=== PATIENT | male | born 1960 | race Caucasian/White ===

== ENCOUNTER 2024-12-27 06:13 | Observation (INO) | payer SELFPAY ==
[2024-12-27] VITALS (12 sets, daily range): BP systolic 132–185; BP diastolic 70–96; PULSE 80–110; RESP 10–20; TEMP 36.3–36.7; O2SAT 97–100; BMI 25.0
--- NOTE | ~2024-12-27 | CT_ITS ---
Non-contrast CT scan of the Abdomen and Pelvis Clinical indication: Left UVJ calculus Technique: 2.5 mm axial scans were obtained through the abdomen and pelvis without intravenous or or al contrast. Dose reduction technique was used on this scan by utilizing automated exposure control a nd iterative reconstruction technique. The dose-length product (DLP) was 193.92 mGy-cm. COMPARISON: 12/27/2024 Findings: Images through the lung bases reveal minimal pleural effusions and minimal bibasilar atele ctatic change. There is minimal residual left hydronephrosis. Previously noted small left UVJ stone is no longer pre sent, presumably passed in the interval. Right kidney and right ureter are unremarkable. The liver, spleen, pancreas, gallbladder, and adrenals appear normal. There are atherosclerotic calci fications of the aorta. There is no evidence of bowel obstruction. Images through the pelvis were performed. There is no evidence of ascites or lymphadenopathy. Urinary bladder unremarkable. Prostate gland is enlarged. Impression: Status post interval passage of left UVJ stone. Minimal residual left hydronephrosis. Minimal bilateral pleural effusions. Enlarged prostate gland. Reviewed, dictated and finalized at location . Impression: Status post interval passage of left UVJ stone. Minimal residual left hydroneph rosis. Minimal bilateral pleural effusions. Enlarged prostate gland.
--- NOTE | ~2024-12-27 | CT_ITS ---
Non-contrast CT scan of the Abdomen and Pelvis Clinical indication: Left flank pain Technique: 2.5 mm axial scans were obtained through the abdomen and pelvis without intravenous or or al contrast. Dose reduction technique was used on this scan by utilizing automated exposure control a nd iterative reconstruction technique. The dose-length product (DLP) was 174.98 mGy-cm. Findings: Images through the lung bases reveal no abnormalities. Probable punctate stones the left UVJ region with mild left hydronephrosis and mild left perinephric stranding. No right renal or right ureteral stone. No right hydronephrosis. The liver, spleen, pancreas, gallbladder, and adrenals appear normal. There is no aortic aneurysm. There is no evidence of bowel obstruction. Images through the pelvis were performed. There is no evidence of ascites or lymphadenopathy. Urinary bladder otherwise unremarkable. Prostate gland is enlarged. There is mild degenerative spondylosis o f the lumbar spine. Impression: Probable punctate left UVJ stone with mild left hydroureteronephrosis and left perinephric stranding. Enlarged prostate gland. Reviewed, dictated and finalized at [facility]. Impression: Probable punctate left UVJ stone with mild left hydroureteronephrosis and left perinephric stranding. Enlarged prostate gland.
--- NOTE | 2024-12-27 06:29 | ED.ABDPAIN ---
HPI - Abdominal Pain General Chief Complaint: Urogenital-Male <Mary Alaniz MD - Last Filed: 12/27/24 07:17> Stated Complaint: SOB, hip pain <Mary Alaniz MD - Last Filed: 12/27/24 07:17> Time Seen by Provider: 12/27/24 06:28 <Mary Alaniz MD - Last Filed: 12/27/24 07:17> Source: patient <Mary Alaniz MD - Last Filed: 12/27/24 07:17> Mode of arrival: ambulatory <Mary Alaniz MD - Last Filed: 12/27/24 07:17> Limitations: no limitations <Mary Alaniz MD - Last Filed: 12/27/24 07:17> History of Present Illness HPI narrative: 64 years old white male healthy otherwise came from home with his complaining of severe left flank pain radiating to the left groin area started 5 hours prior to arrival to the emergency room associated with nausea and vomiting. Patient denies aggravating or relieving factors. History of appendectomy <Mary Alaniz MD - Last Filed: 12/27/24 07:17> Related Data Home Medications: Home Medications ?Medication ?Instructions ?Recorded ?Confirmed ?Last Taken ?Type No Home Medications 12/27/24 12/27/24 Unknown History <Mary Alaniz MD - Last Filed: 12/27/24 07:17> Allergies/Adverse Reactions: Allergies Allergy/AdvReac Type Severity Reaction Status Date / Time No Known Allergies Allergy Verified 12/27/24 06:18 <Mary Alaniz MD - Last Filed: 12/27/24 07:17> Review of Systems Review of Systems: All systems reviewed & are unremarkable except as noted in HPI and below <Mary Alaniz MD - Last Filed: 12/27/24 07:17> Exam Narrative: General appearance: Well-developed, well-nourished Skin: Normal color Head: Normocephalic, nontraumatic Eyes: Clear conjunctiva ENT: Oropharynx normal, ears normal, nose normal Neck: Supple, nontender Chest and respiratory: Airway patent, no respiratory distress, no accessory muscle use Heart: Regular rate/rhythm Abdomen: mild left flank tenderness, left lower abdomen tenderness, no guarding or rebound, normal bowel sounds Vascular: Normal peripheral pulses, normal capillary refill. Musculoskeletal: Normal range of motion, nontender back Neurologic: Alert and oriented ?3, ESTHETICIAN/SKIN THERAPIST is normal as tested, no gross motor deficit <Mary Alaniz MD - Last Filed: 12/27/24 07:17> Course Vital Signs Vital signs: Vital Signs Temperature 36.3 C L 12/27/24 06:17 Pulse Rate 110 H 12/27/24 06:17 Respiratory Rate 18 12/27/24 06:17 Blood Pressure 185/93 H 12/27/24 06:17 Pulse Oximetry 100 12/27/24 06:17 Oxygen Delivery Room Air 12/27/24 06:17 Temperature 36.3 C L 12/27/24 06:17 Pulse Rate 93 12/27/24 08:15 Respiratory Rate 20 12/27/24 08:15 Blood Pressure 149/79 H 12/27/24 08:15 Pulse Oximetry 97 12/27/24 08:15 Oxygen Delivery Room Air 12/27/24 06:17 <Mary Alaniz MD - Last Filed: 12/27/24 07:17> Vital Signs Temperature 36.3 C L 12/27/24 06:17 Pulse Rate 110 H 12/27/24 06:17 Respiratory Rate 18 12/27/24 06:17 Blood Pressure 185/93 H 12/27/24 06:17 Pulse Oximetry 100 12/27/24 06:17 Oxygen Delivery Room Air 12/27/24 06:17 Temperature 36.3 C L 12/27/24 06:17 Pulse Rate 93 12/27/24 08:15 Respiratory Rate 20 12/27/24 08:15 Blood Pressure 149/79 H 12/27/24 08:15 Pulse Oximetry 97 12/27/24 08:15 Oxygen Delivery Room Air 12/27/24 06:17 <Demarcus Spangler MD - Last Filed: 12/27/24 08:32> MDM - Abdominal Pain MDM Narrative Medical decision making narrative: patient came to the ED with sudden onset of left flank pain Vital signs showing blood pressure 185/93, heart rate 110 otherwise within normal limit Physical examination showing restless patient, with left flank tenderness Differential diagnosis include kidney stone, urinary tract infection, colitis, or diverticulitis Blood workup today includes CBC, CMP, lipase showed WBC of 16.7 otherwise insignificant abnormalities , potassium 3.4, creatinine 1.69 Urinalysis showed no evidence of infection CT abdomen and pelvis without contrast showed punctate stone left UVJ junction Elevated blood pressure because patient was in pain on arrival to the ED Patient need to be hospitalized for IV fluid to manage renal insufficiency and kidney stone Patient signed out to the oncoming physician at shift change <Mary Alaniz MD - Last Filed: 12/27/24 07:17> patient came to the ED with sudden onset of left flank pain Vital signs showing blood pressure 185/93, heart rate 110 otherwise within normal limit Physical examination showing restless patient, with left flank tenderness Differential diagnosis include kidney stone, urinary tract infection, colitis, or diverticulitis Blood workup today includes CBC, CMP, lipase showed WBC of 16.7 otherwise insignificant abnormalities , potassium 3.4, creatinine 1.69 Urinalysis showed no evidence of infection CT abdomen and pelvis without contrast showed punctate stone left UVJ junction Elevated blood pressure because patient was in pain on arrival to the ED Patient need to be hospitalized for IV fluid to manage renal insufficiency and kidney stone Patient signed out to the oncoming physician at shift change I have taken over the patient at shift change and pending labs showed an elevated creatinine with no comparison in the chart and we have added IV fluids; also the patient has a white count of 16 thousand with perinephric stranding and we will add Rocephin; we will go ahead and get this patient discussed with urology and transfer for higher level medical care. Discussion with the urologist at [facility] was done and they have suggested admit to our facility for IV fluids and IV antibiotics. He can see the patient as an outpatient for the kidney stone and that should pass on its own due to the small size. If the patient deteriorates he should be transfer for urological evaluation. Repeat CT scan in the morning. <Demarcus Spangler MD - Last Filed: 12/27/24 08:32> Differential Diagnosis Differential diagnosis: Likely other ( as above) <Mary Alaniz MD - Last Filed: 12/27/24 07:17> Medical Records Attestation: I reviewed the patient's medical records. <Mary Alaniz MD - Last Filed: 12/27/24 07:17> Lab Data Attestation: I reviewed the patient's lab results. <Mary Alaniz MD - Last Filed: 12/27/24 07:17> Result diagrams: 12/27/24 06:49 12/27/24 06:49 <Mary Alaniz MD - Last Filed: 12/27/24 07:17> Labs: Lab Results 12/27/24 12/27/24 Range/Units 06:29 06:49 WBC 16.7 H (4.8-10.8) K/mm3 RBC 4.40 L (4.70-6.10) M/mm3 Hgb 13.3 L (14.0-18.0) g/dL Hct 39.5 L (40.0-54.0) % MCV 89.8 (78.0-102.0) fL MCH 30.2 (27.0-31.0) pg MCHC 33.7 (32-36) g/dL RDW 11.9 (11.6-14.4) % Plt Count 604 H (150-420) K/mm3 MPV 9.7 (8.7-11.0) fl Immature Gran % (Auto) 0.5 H (0.0-0.0) % Neut % (Auto) 80.3 H (50.0-70.0) % Lymph % (Auto) 10.4 L (18.0-42.0) % [place] % (Auto) 8.2 (2.0-11.0) % Eos % (Auto) 0.2 L (1.0-6.0) % Baso % (Auto) 0.4 (0.0-1.0) % Lymph # (Auto) 1.73 (1.10-4.50) K/mm3 [place] # (Auto) 1.37 H (0.10-0.90) K/mm3 Eos # (Auto) 0.04 (0.02-0.50) K/mm3 Baso # (Auto) 0.07 (0.00-0.10) K/mm3 Abs Immat Gran (auto) 0.08 H (0.00-0.00) K/mm3 Absolute Neuts (auto) 13.38 H (1.70-7.20) K/mm3 Absolute Nucleated RBC 0.00 (0.00-0.00) K/mm3 Nucleated RBC % 0.0 (0-0.0) % % Immature Plt Fraction 1.8 (1.0-7.0) % Sodium 140 (136-145) mmol/L Potassium 3.4 L (3.5-5.1) mmol/L Chloride 103 (98-108) mmol/L Carbon Dioxide 21 (21-32) mmol/L Anion Gap 16 H (4-12) mmol/L BUN 16 (7-18) mg/dL Creatinine 1.69 H (0.70-1.30) mg/dL Estim Creat Clear Calc 42 ml/min Estimated GFR 41 L (59 - ) Glucose 156 H (70-99) mg/dL Calculated Osmolality 294 (285-295) mOsm/kg Calcium 9.3 (8.5-10.1) mg/dL Total Bilirubin 0.4 (0.00-1.00) mg/dL AST 18 (15-37) U/L ALT 31 (16-63) U/L Alkaline Phosphatase 90 (46-116) U/L Total Protein 7.8 (6.4-8.2) g/dL Albumin 3.2 L (3.4-5.0) g/dL Lipase 30 (16-77) U/L Urine Color Light yellow (Yellow) Urine Appearance Cloudy A (Clear) Urine pH 8.5 H (5.0-8.0) Ur Specific [place] 1.015 (1.010-1.020) Urine Protein Negative (Negative) Urine Glucose (UA) Negative (Negative) Urine Ketones Trace H (Negative) Ur Blood (Man) 2+ H (Negative) Urine Nitrate Negative (Negative) Urine Bilirubin Negative (Negative) Urine Urobilinogen 0.2 (0.2-1.0) mg/dL Leukocyte Esterase Rfl Negative (Negative) ANDRES/UL Urine RBC 11-20 H (0-2) /hpf Urine WBC None seen (0-3) /hpf Amorphous Sediment Moderate H (None) Urine Bacteria 2+ H (None) /hpf <Mary Alaniz MD - Last Filed: 12/27/24 07:17> Lab Results 12/27/24 12/27/24 Range/Units 06:29 06:49 WBC 16.7 H (4.8-10.8) K/mm3 RBC 4.40 L (4.70-6.10) M/mm3 Hgb 13.3 L (14.0-18.0) g/dL Hct 39.5 L (40.0-54.0) % MCV 89.8 (78.0-102.0) fL MCH 30.2 (27.0-31.0) pg MCHC 33.7 (32-36) g/dL RDW 11.9 (11.6-14.4) % Plt Count 604 H (150-420) K/mm3 MPV 9.7 (8.7-11.0) fl Immature Gran % (Auto) 0.5 H (0.0-0.0) % Neut % (Auto) 80.3 H (50.0-70.0) % Lymph % (Auto) 10.4 L (18.0-42.0) % [place] % (Auto) 8.2 (2.0-11.0) % Eos % (Auto) 0.2 L (1.0-6.0) % Baso % (Auto) 0.4 (0.0-1.0) % Lymph # (Auto) 1.73 (1.10-4.50) K/mm3 [place] # (Auto) 1.37 H (0.10-0.90) K/mm3 Eos # (Auto) 0.04 (0.02-0.50) K/mm3 Baso # (Auto) 0.07 (0.00-0.10) K/mm3 Abs Immat Gran (auto) 0.08 H (0.00-0.00) K/mm3 Absolute Neuts (auto) 13.38 H (1.70-7.20) K/mm3 Absolute Nucleated RBC 0.00 (0.00-0.00) K/mm3 Nucleated RBC % 0.0 (0-0.0) % % Immature Plt Fraction 1.8 (1.0-7.0) % Sodium 140 (136-145) mmol/L Potassium 3.4 L (3.5-5.1) mmol/L Chloride 103 (98-108) mmol/L Carbon Dioxide 21 (21-32) mmol/L Anion Gap 16 H (4-12) mmol/L BUN 16 (7-18) mg/dL Creatinine 1.69 H (0.70-1.30) mg/dL Estim Creat Clear Calc 42 ml/min Estimated GFR 41 L (59 - ) Glucose 156 H (70-99) mg/dL Calculated Osmolality 294 (285-295) mOsm/kg Calcium 9.3 (8.5-10.1) mg/dL Total Bilirubin 0.4 (0.00-1.00) mg/dL AST 18 (15-37) U/L ALT 31 (16-63) U/L Alkaline Phosphatase 90 (46-116) U/L Total Protein 7.8 (6.4-8.2) g/dL Albumin 3.2 L (3.4-5.0) g/dL Lipase 30 (16-77) U/L Urine Color Light yellow (Yellow) Urine Appearance Cloudy A (Clear) Urine pH 8.5 H (5.0-8.0) Ur Specific [place] 1.015 (1.010-1.020) Urine Protein Negative (Negative) Urine Glucose (UA) Negative (Negative) Urine Ketones Trace H (Negative) Ur Blood (Man) 2+ H (Negative) Urine Nitrate Negative (Negative) Urine Bilirubin Negative (Negative) Urine Urobilinogen 0.2 (0.2-1.0) mg/dL Leukocyte Esterase Rfl Negative (Negative) ANDRES/UL Urine RBC 11-20 H (0-2) /hpf Urine WBC None seen (0-3) /hpf Amorphous Sediment Moderate H (None) Urine Bacteria 2+ H (None) /hpf <Demarcus Spangler MD - Last Filed: 12/27/24 08:32> Imaging Data Radiologist's impression: ITS Impressions Abdomen/Pelvis CT 12/27/24 06:44 Impression: Probable punctate left UVJ stone with mild left hydroureteronephrosis and left perinephric stranding. Enlarged prostate gland. Impressions Abdomen/Pelvis CT 12/27/24 06:44 Impression: Probable punctate left UVJ stone with mild left hydroureteronephrosis and left perinephric stranding. Enlarged prostate gland. <Mary Alaniz MD - Last Filed: 12/27/24 07:17> ITS Impressions Abdomen/Pelvis CT 12/27/24 06:44 Impression: Probable punctate left UVJ stone with mild left hydroureteronephrosis and left perinephric stranding. Enlarged prostate gland. <Demarcus Spangler MD - Last Filed: 12/27/24 08:32> Critical Care Time Critical Care Time Critical Care Time: No <Mary Alaniz MD - Last Filed: 12/27/24 07:17> Discharge Plan Discharge Clinical Impression: Acute pyelonephritis, Kidney stone on left side, Renal insufficiency, Acute dehydration <Mary Alaniz MD - Last Filed: 12/27/24 07:17> Patient Disposition: [facility] <Mary Alnaiz MD - Last Filed: 12/27/24 07:17> Condition: Improved <Mary Alaniz MD - Last Filed: 12/27/24 07:17> Patient Language: Uzbek <Mary Alaniz MD - Last Filed: 12/27/24 07:17> Prescriptions: New hydrocodone-acetaminophen 5-325 mg tablet 1 tablet PO Q4H Qty: 20 0RF ondansetron HCl 4 mg tablet 4 mg PO Q4H Qty: 10 0RF Rx Instructions: 1st dose 1-2 hr before radiation tamsulosin [Flomax] 0.4 mg capsule 0.4 mg PO DAILY Qty: 10 0RF No Action No Home Medications <Mary Alaniz MD - Last Filed: 12/27/24 07:17> Follow-up/Referrals: Teresa Escamilla MD [Primary Care Provider] - Tremaine Pineda MD [Physician] - 12/28/24 <Mary Alaniz MD - Last Filed: 12/27/24 07:17> Time of Disposition: 07:40 <Mary Alaniz MD - Last Filed: 12/27/24 07:17> 07:40 <Demarcus Spangler MD - Last Filed: 12/27/24 08:32>
[2024-12-27 06:43] LABS: Add Urine Microscopic? YES; Appearance Urine Cloudy (Clear); Bilirubin Urine Negative (Negative); Blood Urine 2+ (Negative); Color Urine Light Yellow (Yellow); Glucose Urine UA Negative (Negative); Ketones Urine Trace (Negative); Leukocyte Esterase Ur Negative LEU/UL (Negative); Nitrate Urine Negative (Negative); Protein Urine Negative (Negative); Specific Grav Ur 1.015 (1.010-1.020); Urobilinogen Urine 0.2 mg/dL (0.2-1.0); pH Urine 8.5 (5.0-8.0)
[2024-12-27] MEDS: HYDROmorphone HCL INJ (*CRX) 2 MG/ML VIAL 0.5 MG IV PUSH (06:52)
[2024-12-27] MEDS: ONDANSETRON INJ 4 MG/2 ML VIAL IV PUSH (06:52)
[2024-12-27] MEDS: SODIUM CHLORIDE 0.9% IV 1,000 ML 999 ML IV CONT ×2 (06:53→07:53)
[2024-12-27] MEDS: TAMSULOSIN HCL 0.4 MG CAPSULE PO (06:56)
[2024-12-27 06:57] LABS: WBC Urine None seen /hpf (0-3)
[2024-12-27 06:57] LABS: Basophils Absolute Auto 0.07 K/mm3 (0.00-0.10); Basophils Percent Auto 0.4 % (0.0-1.0); Eosinophils Absolute Auto 0.04 K/mm3 (0.02-0.50); Eosinophils Percent Auto 0.2 % (1.0-6.0); Hematocrit 39.5 % (40.0-54.0); Hemoglobin 13.3 g/dL (14.0-18.0); Immature Granulocyte Absolute 0.08 K/mm3 (0.00-0.00); Immature Granulocyte Percent A 0.5 % (0.0-0.0); Immature Platelet Fraction Pct 1.8 % (1.0-7.0); Lymphocytes Absolute Auto 1.73 K/mm3 (1.10-4.50); Lymphocytes Percent Auto 10.4 % (18.0-42.0); Mean Corpuscular HGB Conc 33.7 g/dL (32-36); Mean Corpuscular Hemoglobin 30.2 pg (27.0-31.0); Mean Corpuscular Volume 89.8 fL (78.0-102.0); Mean Platelet Volume 9.7 fl (8.7-11.0); Monocytes Absolute Auto 1.37 K/mm3 (0.10-0.90); Monocytes Percent Auto 8.2 % (2.0-11.0); Neutrophils Absolute Auto 13.38 K/mm3 (1.70-7.20); Neutrophils Percent Auto 80.3 % (50.0-70.0); Platelet Count Result 604 K/mm3 (150-420); Red Cell Distribution Width 11.9 % (11.6-14.4); White Blood Count 16.7 K/mm3 (4.8-10.8)
[2024-12-27 06:58] LABS: Amorphous Sediment Urine Moderate; Bacteria Urine 2+ /hpf
[2024-12-27] MEDS: KETOROLAC 30 MG/ML VIAL (*BKC) IV PUSH ×2 (06:59→14:18)
[2024-12-27 07:09] LABS: Alanine Aminotransferase 31 U/L (16-63); Albumin Level 3.2 g/dL (3.4-5.0); Alkaline Phosphatase 90 U/L (46-116); Anion Gap 16 mmol/L (4-12); Aspartate Amino Transferase 18 U/L (15-37); Bilirubin,Total 0.4 mg/dL (0.00-1.00); Blood Urea Nitrogen 16 mg/dL (7-18); Carbon Dioxide 21 mmol/L (21-32); Chloride 103 mmol/L (98-108); Estimated CRCL calculation 42 ml/min; Estimated Glomerular Filt Rate 41; Glucose 156 mg/dL (70-99); Lipase 30 U/L (16-77); Osmolality Calculated 294 mOsm/kg (285-295); Potassium 3.4 mmol/L (3.5-5.1); Sodium 140 mmol/L (136-145); Total Protein 7.8 g/dL (6.4-8.2)
[2024-12-27 07:14] LABS: Calcium 9.3 mg/dL (8.5-10.1)
--- NOTE | 2024-12-27 07:56 | PC.NURSE ---
ERP IS AT BEDSIDE UPDATING PT AND ON STATUS. IVF AND MEDICATIONS ARE INFUSING ORDERED WITHOUT DIFFICULTY. PT DENIES ANY NEEDS OR COMPLAINTS. DENIES ANY PAIN OR NAUSEA AT THIS TIME. PT IS AWAITING RETURN CALL FROM UROLOGY AT THIS TIME. WILL CONTINUE TO MONITOR.
[2024-12-27] MEDS: POTASSIUM CHLORIDE 20 MEQ ER TABLET PO (08:55)
--- NOTE | 2024-12-27 08:58 | PC.NURSE ---
PT IS GOING TO BE ADMITTED TO [facility], PT AND HAS BEEN UPDATED ON STATUS. PT DENIES ANY NEEDS OR COMPLAINTS. WILL CONTINUE TO MONITOR.
[2024-12-27] MEDS: PANTOPRAZOLE 40 MG TABLET PO (10:38)
[2024-12-27] MEDS: LACTATED RINGERS 1,000 ML 150 ML IV CONT ×2 (10:39→18:30)
--- NOTE | 2024-12-27 12:05 | PC.NURSE ---
Pt arrived on the unit at 0915 from the ED. He is alert and orientated x 3. Denies pain at this time. VSS, gait is steady. Pt has a 20 gauge IV in LFA that is patent. Pt instructed on nurse call button, use of TV remote and visiting hours . Pt and spouse verbalize understanding of all instructions.
[2024-12-27] MEDS: HYDROmorphone HCL INJ (*CRX) 2 MG/ML VIAL 1 MG IV PUSH ×2 (14:20→20:05)
--- NOTE | 2024-12-27 15:04 | P.HP_ITS ---
H&P: HPI History of Present Illness Date/Time: 12/27/24 15:04 Chief Complaint: Back pain/N/V/SOB Narrative: Patient is 64-year-old male who presented to the emergency department with severe lower left back pain radiating to his groin. She with no significant past medical history excepted report COPD and previous smoker. patient states symptoms began about 5 hours prior to arrival to the emergency department left flank pain came on suddenly was sharp in induced nausea and vomiting. patient had also endorsed shortness of breath but secondary to pain. Patient reported chills but denied fever reports he recently was diagnosed with COVID and ever since then has had a poor appetite and poor hydration. CT abdomen showed show a probable punctuated left UVJ stone and mild left hydroureteronephrosis, patient significant with leukocytosis of 16.7 and acute kidney injury with creatinine of 1.69, UA unremarkable. emergency physician spoke with Urology at [facility] who at this time feels patient likely be able to passed stone on own without intervention recommended aggressive IV hydration pain control and strain all urine. if patient's symptoms were to worsen no would need to be transferr ed to [facility]. Review of Systems Review of Systems: All systems reviewed & are unremarkable except as noted in HPI and below PMFSH Past Medical History Medical History (Updated 12/27/24 @ 15:11 by Anila Robledo APRN) COPD (chronic obstructive pulmonary disease) Social History Social History Smoking packs per day: 1 Smoking cigarettes per day: 20.0 Years smoked: 15 Smoking pack-years: 15.00 Smoking status: Former smoker Tobacco type: cigarettes Second hand tobacco smoke exposure: No Smoking end date: 12/27/09 Alcohol intake: never Substance use: never Substance use type: does not use Do You Feel Safe in your Home?: Yes Lack of Transportation: No Lack of Food: Never True Current Housing: I Have Housing Concerned About Future Housing: No Difficulty Paying Gas/Electric Bills: No Difficulty Paying for Meds: No Currently Unemployed: No Education: High School Diploma/GED Difficulty w/ Childcare or Family Care: No Spiritual care concerns: No Meds Home Medications and Allergies Home Medications ?Medication ?Instructions ?Recorded ?Confirmed ?Type No Home Medications 12/27/24 12/27/24 History hydrocodone 5 mg-acetaminophen 325 1 tablet PO Q4H #20 tabs 12/27/24 Rx mg tablet ondansetron HCl 4 mg tablet 4 mg PO Q4H 3 doses #10 tabs 12/27/24 Rx tamsulosin 0.4 mg capsule (Flomax) 0.4 mg PO DAILY #10 caps 12/27/24 Rx Allergies Allergy/AdvReac Type Severity Reaction Status Date / Time No Known Allergies Allergy Verified 12/27/24 06:18 Vital Signs Vital Signs - 24 hr 12/27/24 06:17 12/27/24 07:30 12/27/24 08:00 Temperature 97.3 F L Pulse Rate 110 H 91 94 Respiratory Rate 18 10 L 12 Blood Pressure 185/93 H 150/70 H Pulse Oximetry 100 97 98 Oxygen Delivery Room Air 12/27/24 08:15 12/27/24 08:25 12/27/24 08:30 Temperature Pulse Rate 93 91 94 Respiratory Rate 20 14 12 Blood Pressure 149/79 H 149/79 H 156/81 H Pulse Oximetry 97 98 98 Oxygen Delivery 12/27/24 08:45 12/27/24 08:58 12/27/24 09:27 Temperature 98.0 F Pulse Rate 97 98 80 Respiratory Rate 17 18 14 Blood Pressure 138/92 H 148/96 H Pulse Oximetry 98 100 98 Oxygen Delivery Room Air Room Air 12/27/24 14:00 Temperature 97.8 F Pulse Rate 88 Respiratory Rate 14 Blood Pressure 148/78 H Pulse Oximetry 98 Oxygen Delivery Room Air Exam Const: General: comfortable and no acute distress HENMT: Mouth: Yes moist mucous membranes Eyes: General: appearance normal, both eyes and all related structures Pupils: Equal, round and reactive pupils present Neck: Neck: supple and no JVD Resp: Effort & Inspection: normal respiratory effort Auscultation: clear to auscultation bilaterally Cardio: Rate: regular rate Rhythm: regular rhythm GI: GI Palp: Yes Soft to palpation and Yes Tenderness to palpation present (GI) Other: Left CVA H&P: Results Labs Labs: Short CBC 12/27/24 Range/Units 06:49 WBC 16.7 H (4.8-10.8) K/mm3 Hgb 13.3 L (14.0-18.0) g/dL Hct 39.5 L (40.0-54.0) % Plt Count 604 H (150-420) K/mm3 BMP 12/27/24 06:49 Sodium 140 Potassium 3.4 L Chloride 103 Carbon Dioxide 21 BUN 16 Creatinine 1.69 H Glucose 156 H Calcium 9.3 Liver Function 12/27/24 Range/Units 06:49 Total Bilirubin 0.4 (0.00-1.00) mg/dL AST 18 (15-37) U/L ALT 31 (16-63) U/L Alkaline Phosphatase 90 (46-116) U/L Albumin 3.2 L (3.4-5.0) g/dL Urine 12/27/24 Range/Units 06:29 Urine Color Light yellow (Yellow) Urine Appearance Cloudy A (Clear) Urine pH 8.5 H (5.0-8.0) Ur Specific [place] 1.015 (1.010-1.020) Urine Protein Negative (Negative) Urine Glucose (UA) Negative (Negative) Imaging CT scan - abdomen: Radiologist's impression: Non-contrast CT scan of the Abdomen and Pelvis Clinical indication: Left flank pain Technique: 2.5 mm axial scans were obtained through the abdomen and pelvis without intravenous or oral contrast. Dose reduction technique was used on this scan by utilizing automated exposure control and iterative reconstruction te [employer]. The dose-length product (DLP) was 174.98 mGy-cm. Findings: Images through the lung bases reveal no abnormalities. Probable punctate stones the left UVJ region with mild left hydronephrosis and mild left perinephric stranding. No right renal or right ureteral stone. No right hydronephrosis. The liver, spleen, pancreas, gallbladder, and adrenals appear normal. There is no aortic aneurysm. There is no evidence of bowel obstruction. Images through the pelvis were performed. There is no evidence of ascites or lymphadenopathy. Urinary bladder otherwise unremarkable. Prostate gland is enlarged. There is mild degenerative spondylosis of the lumbar spine. Impression: Probable punctate left UVJ stone with mild left hydroureteronephrosis and left perinephric stranding. Enlarged prostate gland. Assessment and Plan Assessment and plan (1) Left ureteral calculus: Code(s): N20.1 - Calculus of ureter Status: Acute Assessment and Plan: CT showing left UVJ stone causing mild left hydroureter nephrosis with left perinephric stranding * urology was consulted with [facility] recommended medical management no need for intervention this time * aggressive IV fluids * Toradol for inflammation * pain control * is on IV Rocephin however leukocytosis likely secondary to inflammatory response UA was negative will treat empirically * plan for follow-up labs and CT abdomen in the a.m. for clearance * strain all urine * can follow-up with Urology outpatient (2) Hydroureter, left: Code(s): N13.4 - Hydroureter Status: Acute Assessment and Plan: SEE ABOVE #1 (3) COPD (chronic obstructive pulmonary disease): Code(s): J44.9 - Chronic obstructive pulmonary disease, unspecified Status: Acute Assessment and Plan: * patient is a previous smoker reports he has been told he has COPD currently 97% on room air Plan Code status: Full code per patient DVT prophylaxis: SCD's Stress ulcer prophylaxis: Protonix 40 daily PT/OT notes: Ambulatory Disposition: patient admitted to the medical unit for further evaluation and treatment left ureter calculus with hydroureter nephrosis continue with current treatment plan CT abdomen to evaluate for clearance unless patient symptoms worsen any and transferred to [facility] for urology evaluation. if patient improved tomorrow can discharge home and follow-up with Urology outpatient. Quality VTE Prophylaxis VTE prophylaxis: mechanical ordered -Patient's previous records reviewed on admission -ER notes reviewed in detail on admission -discussed all findings and current treatment plan with patient/Family/POA -Consultations reviewed for recommendations -Patient's disposition for safe discharge discussed with mental health case manager Dictation performed by [employer] direct speech recognition software, therefore bricklayer supervisor variants and typographical errors may occur. Hospitalist MIPS Advance Care Plan I have confirmed that the patient's Advanced Care Plan is present, code status is documented, or surrogate decision maker is listed in patient medical record.: Yes Medication Reconciliation I have utilized all available resources to obtain, update and review the patients current medications (includes all prescriptions, OTC, herbals, cannabis, and nutritional supplements).: Yes The patient is not eligible for med reconciliation; the patient is in a emergent medical situation where delaying treatment would jeopardize the patients health.: No
--- NOTE | 2024-12-27 15:32 | PC.NURSE ---
Pt voided 600ml of clear urine with several small stones noted. Staff is straining pt's urine.
[2024-12-28] VITALS: BP 126/84; PULSE 99; RESP 20; TEMP 36.6; O2SAT 97
[2024-12-28] MEDS: LACTATED RINGERS 1,000 ML 150 ML IV CONT (01:03)
[2024-12-28] MEDS: ACETAMINOPHEN 325 MG TABLET 650 MG PO (02:00)
--- NOTE | 2024-12-28 02:10 | PC.NURSE ---
Patient has voided twice since 2299 and has passed 3 very, very small stones. Patient complained of a headache with PRN Tylenol given but denies pain from stones @ this time. This nurse was told in shift report that patient had passed 6 very, very small stones on 3-11 shift. Call light in reach.
--- NOTE | 2024-12-28 04:07 | PC.NURSE ---
Patient voided again wtih no stones found. Denies pain. Call light in reach.
[2024-12-28 05:49] LABS: Basophils Absolute Auto 0.06 K/mm3 (0.00-0.10); Basophils Percent Auto 0.5 % (0.0-1.0); Eosinophils Absolute Auto 0.16 K/mm3 (0.02-0.50); Eosinophils Percent Auto 1.3 % (1.0-6.0); Hematocrit 33.4 % (40.0-54.0); Hemoglobin 10.6 g/dL (14.0-18.0); Immature Granulocyte Absolute 0.05 K/mm3 (0.00-0.00); Immature Granulocyte Percent A 0.4 % (0.0-0.0); Lymphocytes Absolute Auto 2.07 K/mm3 (1.10-4.50); Lymphocytes Percent Auto 16.7 % (18.0-42.0); Mean Corpuscular HGB Conc 31.7 g/dL (32-36); Mean Corpuscular Hemoglobin 30.3 pg (27.0-31.0); Mean Corpuscular Volume 95.4 fL (78.0-102.0); Mean Platelet Volume 9.6 fl (8.7-11.0); Monocytes Absolute Auto 1.05 K/mm3 (0.10-0.90); Monocytes Percent Auto 8.5 % (2.0-11.0); Neutrophils Absolute Auto 9.02 K/mm3 (1.70-7.20); Neutrophils Percent Auto 72.6 % (50.0-70.0); Platelet Count Result 444 K/mm3 (150-420); Red Cell Distribution Width 12.4 % (11.6-14.4); White Blood Count 12.4 K/mm3 (4.8-10.8)
--- NOTE | 2024-12-28 05:55 | PC.NURSE ---
Patient voided and passed 2 more very, very small (grain sized) stones. Denies abd/side pain. Patient to radiology per educational technology coordinator by w/c.
[2024-12-28 06:05] LABS: Alanine Aminotransferase 23 U/L (16-63); Albumin Level 2.3 g/dL (3.4-5.0); Alkaline Phosphatase 76 U/L (46-116); Anion Gap 8 mmol/L (4-12); Aspartate Amino Transferase 10 U/L (15-37); Bilirubin,Total 0.3 mg/dL (0.00-1.00); Blood Urea Nitrogen 14 mg/dL (7-18); Calcium 8.2 mg/dL (8.5-10.1); Carbon Dioxide 24 mmol/L (21-32); Chloride 110 mmol/L (98-108); Estimated CRCL calculation 43 ml/min; Estimated Glomerular Filt Rate 46; Glucose 111 mg/dL (70-99); Osmolality Calculated 295 mOsm/kg (285-295); Potassium 3.9 mmol/L (3.5-5.1); Sodium 142 mmol/L (136-145)
--- NOTE | 2024-12-28 06:05 | PC.NURSE ---
Patient returned from radiology per tech in w/c. Call light in reach.
[2024-12-28 08:00] VITALS: BP 155/81; PULSE 92; RESP 18; TEMP 36.4; O2SAT 98
[2024-12-28] MEDS: PANTOPRAZOLE 40 MG TABLET PO (08:46)
--- NOTE | 2024-12-28 09:41 | PM.DS ---
DS: Admitting Diagnosis Discharge Date 12/28/24 Admitting Diagnosis left ureteral calculus left hydroureter COPD DS: Summary Hospital Course Reason for hospitalization: left ureteral calculus left hydroureter COPD Hospital Course: Final diagnosis: Left ureteral calculus Status at Discharge Cognitive/behavioral status at discharge: Alert and oriented x3 Functional status at discharge: independent ambulation Overall status at discharge: patient is progressing back to baseline Time Spent with Patient Time attestation: Total time spent providing and/or coordinating discharge services: Time spent: Greater than 30 minutes Exam Narrative: General: In no acute distress, well nourished Head: atraumatic, no encephalopathy Eyes: EOMI, PERRLA, sclera clear ENT: moist mucous membranes, nasal passages clear Neck: supple, no JVD, no adenopathy, trachea midline Cardiac: Normal S1 and S2. No murmur, gallops or friction rubs, peripheral pulses intact. Respiratory: Lungs clear to auscultation, no adventitious lung sounds Gastrointestinal: soft, non-distended, non-tender, normoactive bowel sounds. : voiding without difficulty. Extremities: moves all extremities well, no edema, good ROM, strength 5/5 Skin: clean, dry, intact. No wounds or lesions. Neuro: Alert and oriented x4, cranial nerves intact, no neuro deficits. Psych: normal mood, normal affect, interactive DS: Data Data Completed and Pending Completed studies during hospitalization: abdomen/pelvis CT x2 Pending studies at discharge: none Labs on day of discharge: Labs from last 24 hours 12/28/24 05:32 WBC 12.4 H RBC 3.50 L Hgb 10.6 L Hct 33.4 L MCV 95.4 MCH 30.3 MCHC 31.7 L RDW 12.4 Plt Count 444 H MPV 9.6 Immature Gran % (Auto) 0.4 H Neut % (Auto) 72.6 H Lymph % (Auto) 16.7 L [place] % (Auto) 8.5 Eos % (Auto) 1.3 Baso % (Auto) 0.5 Lymph # (Auto) 2.07 [place] # (Auto) 1.05 H Eos # (Auto) 0.16 Baso # (Auto) 0.06 Abs Immat Gran (auto) 0.05 H Absolute Neuts (auto) 9.02 H Absolute Nucleated RBC 0.00 Nucleated RBC % 0.0 Sodium 142 Potassium 3.9 Chloride 110 H Carbon Dioxide 24 Anion Gap 8 BUN 14 Creatinine 1.52 H Estim Creat Clear Calc 43 Estimated GFR 46 L Glucose 111 H Calculated Osmolality 295 Calcium 8.2 L Total Bilirubin 0.3 AST 10 L ALT 23 Alkaline Phosphatase 76 Total Protein 6.0 L Albumin 2.3 L Procedures/Treatments: none Discharge Plan Discharge Attending physician on discharge: Viraj Daly Consulting providers: Anila Robledo Discharging Clinician: Taya Scanlon Anticipated Discharge Date/Time: 12/28/24 09:38 Patient Disposition: Home, Self-Care Activity: as tolerated Diet: as tolerated and regular Discharge Instructions: Obtain lab in 3-5 days to recheck your creatinine level Follow up with your primary care doctor in 1 week. Get referral to see Urologist at [facility] to follow up on kidney stones and prostate health Patient Instructions: Antibiotic Form Patient Language: Ethiopian Stand Alone Forms: General Discharge Information Follow-up/Referrals: Iglesia Ruff MD [Physician] - Teresa Escamilla MD [Primary Care Provider] - 1 week Discharge Medications: New hydrocodone-acetaminophen 5-325 mg tablet 1 tablet PO Q4H Qty: 20 0RF ondansetron HCl 4 mg tablet 4 mg PO Q4H Qty: 10 0RF Rx Instructions: 1st dose 1-2 hr before radiation tamsulosin [Flomax] 0.4 mg capsule 0.4 mg PO DAILY Qty: 10 0RF Other Ambulatory Orders: Basic Metabolic Panel (Routine) Timeframe: 3 Days Location: Determined by Patient Ordered By: Taya Scanlon Date of admission: 12/27/24 08:31 Primary Care Provider: Teresa Escamilla Admitting Provider: Viraj Daly Attending physician on admission: Taya Scanlon Condition: Improved Quality VTE Prophylaxis VTE prophylaxis: mechanical ordered Hospitalist MIPS Heart Failure (Exclusion) Patient has history of Heart Transplant or Left Ventricular Assistive Device?: No IF YES, STOP HERE Heart Failure (Qualifier) Patient has current or prior documentation of LVEF less than or equal to 40%, or mod/servere depressed LVSF?: No IF NO, STOP HERE
--- NOTE | 2024-12-28 09:49 | P.DS_ITS ---
DS: Admitting Diagnosis Discharge Date 12/28/24 DS: Summary Time Spent with Patient Time attestation: Total time spent providing and/or coordinating discharge services: DS: Data Data Completed and Pending Labs on day of discharge: Labs from last 24 hours 12/28/24 05:32 WBC 12.4 H RBC 3.50 L Hgb 10.6 L Hct 33.4 L MCV 95.4 MCH 30.3 MCHC 31.7 L RDW 12.4 Plt Count 444 H MPV 9.6 Immature Gran % (Auto) 0.4 H Neut % (Auto) 72.6 H Lymph % (Auto) 16.7 L [place] % (Auto) 8.5 Eos % (Auto) 1.3 Baso % (Auto) 0.5 Lymph # (Auto) 2.07 [place] # (Auto) 1.05 H Eos # (Auto) 0.16 Baso # (Auto) 0.06 Abs Immat Gran (auto) 0.05 H Absolute Neuts (auto) 9.02 H Absolute Nucleated RBC 0.00 Nucleated RBC % 0.0 Sodium 142 Potassium 3.9 Chloride 110 H Carbon Dioxide 24 Anion Gap 8 BUN 14 Creatinine 1.52 H Estim Creat Clear Calc 43 Estimated GFR 46 L Glucose 111 H Calculated Osmolality 295 Calcium 8.2 L Total Bilirubin 0.3 AST 10 L ALT 23 Alkaline Phosphatase 76 Total Protein 6.0 L Albumin 2.3 L Discharge Plan Discharge Attending physician on discharge: Viraj Daly Consulting providers: Anila Robledo Discharging Clinician: Taya Scanlon Anticipated Discharge Date/Time: 12/28/24 09:38 Patient Disposition: Home, Self-Care Activity: as tolerated Diet: as tolerated and regular Discharge Instructions: * Obtain lab in 3-5 days to recheck your creatinine level * Follow up with your primary care doctor in 1 week. * Get referral to see Urologist at [facility] to follow up on kidney stones and prostate health Patient Instructions: Antibiotic Form Patient Language: Bulgarian Stand Alone Forms: General Discharge Information Follow-up/Referrals: Iglesia Ruff MD [Physician] - Teresa Escamilla MD [Primary Care Provider] - 1 week Discharge Medications: New hydrocodone-acetaminophen 5-325 mg tablet 1 tablet PO Q4H Qty: 20 0RF ondansetron HCl 4 mg tablet 4 mg PO Q4H Qty: 10 0RF Rx Instructions: 1st dose 1-2 hr before radiation tamsulosin [Flomax] 0.4 mg capsule 0.4 mg PO DAILY Qty: 10 0RF Other Ambulatory Orders: Basic Metabolic Panel (Routine) Timeframe: 3 Days Location: Determined by Patient Ordered By: Taya Scanlon Date of admission: 12/27/24 08:31 Primary Care Provider: Teresa Escamilla Admitting Provider: Viraj Daly Attending physician on admission: Taya Scanlon Condition: Improved
--- NOTE | 2024-12-28 10:25 | PC.NURSE ---
Discharge to home, denies pain upon dc, states will return if pain returns, reviewed all medications, education given on kidney stones, advised to return for labs to be drawn december 31, requisition given. No questions voiced, is alert and oriented and agreeable to discharge.
--- NOTE | 2024-12-29 14:30 | PC.NURSE ---
Called patient for call back follow up. Call did not go through, fast beeping noted, attempted x 2.
== END 2024-12-28 10:25 | disposition home or self-care (01) ==
LOC: CHSED 08:16 → CHS2ND 09:01
PROVIDERS: Emergency Medicine; Nurse Practitioner Family; Admitting Provider Internal Medicine; Emergency Provider Emergency Medicine; PCP Internal Medicine; Visit Provider Nurse Practitioner Acute Care
DX: N20.1 Calculus of ureter (principal); N13.4 Hydroureter; N40.0 Benign prostatic hyperplasia without lower urinary tract symptoms; E86.0 Dehydration; J44.9 Chronic obstructive pulmonary disease, unspecified; Z87.891 Personal history of nicotine dependence
CPT/HCPCS: 36415; 74176; 80053; 81001; 83690; 85025; 85055; 96360; 96361; 96365; 96375; 96376; 99285; A9270; G0378; J0696; J1171; J1885; J2405; J7030; J7120